=== PATIENT | male | born 1965 | race Caucasian/White ===

== ENCOUNTER 2019-06-01 18:50 | Observation (INO) | payer SELFPAY ==
[2019-06-01] MEDS ORDERED: Sodium Chloride 0.9% 2.5 ML Syringe FLUSH PRN (19:30)
[2019-06-01] MEDS ORDERED: Sodium Chloride 0.9% 10 ML Syringe FLUSH PRN (19:30)
--- NOTE | 2019-06-01 19:35 | EDM.PDOC ---
ED HPI GENERAL MEDICAL PROBLEM - General Chief Complaint: Lower Extremity Injury/Pain Stated Complaint: RT LEG/KNEE ISSUE Time Seen by Provider: 06/01/19 19:26 - History of Present Illness INITIAL COMMENTS - FREE TEXT/NARRATIVE: HISTORY AND PHYSICAL: History of present illness: Patient is 53-year-old white male with no significant past medical history presents with concern of cellulitis to his right leg. Patient states he was seen 5 days prior in clinic and put on Bactrim for cellulitis that started over the anterior aspect of his right proximal leg. He states this has felt warmer and redness has increased. He denies fever chills nausea vomiting or other concern he is extremely anxious regarding this episode Review of systems: As per history of present illness and below otherwise all systems reviewed and negative. Past medical history: As per history of present illness and as reviewed below otherwise noncontributory. Surgical history: As per history of present illness and as reviewed below otherwise noncontributory. Social history: No reported history of drug or alcohol abuse. Family history: As per history of present illness and as reviewed below otherwise noncontributory. Physical exam: HEENT: Atraumatic, normocephalic, pupils reactive, negative for conjunctival pallor or scleral icterus, mucous membranes moist, throat clear, neck supple, nontender, trachea midline. Lungs: Clear to auscultation, breath sounds equal bilaterally, chest nontender. Heart: S1S2, regular, negative for clicks, rubs, or JVD. Abdomen: Soft, nondistended, nontender. Negative for masses or hepatosplenomegaly. Negative for costovertebral tenderness. Pelvis: Stable nontender. Genitourinary: Deferred. Rectal: Deferred. Extremities: patient has erythema with some mild warmth over his right knee and proximal right leg there is no fluctuance induration patient has full range of motion and no evidence of septic arthritis Neuro: Awake, alert, oriented. Cranial nerves II through XII unremarkable. Cerebellum unremarkable. Motor and sensory unremarkable throughout. Exam nonfocal. Diagnostics: CBC CMP blood culture 2 x-ray right knee Therapeutics: Saline 1 L bolus vancomycin 1 g IV Impression: #1 cellulitis lower extremity Definitive disposition and diagnosis as appropriate pending reevaluation and review of above. right knee Pain Score (Numeric/FACES): 8 - Related Data Allergies Allergy/AdvReac Type Severity Reaction Status Date / Time No Known Allergies Allergy Verified 06/01/19 19:26 Home Meds: Home Meds . [No Known Home Meds] 06/01/19 [History] Past Medical History - Past Health History Medical/Surgical History: Denies Medical/Surgical History Gastrointestinal History: Reports: None Musculoskeletal History: Reports: None - Infectious Disease History Infectious Disease History: Reports: Chicken Pox - Past Surgical History GI Surgical History: Reports: Hernia, Inguinal, Other (See Below) Other GI Surgeries/Procedures: Spleenectomy Musculoskeletal Surgical History: Reports: Other (See Below) Other Musculoskeletal Surgeries/Procedures:: L hand Social & Family History - Family History Family Medical History: Noncontributory - Tobacco Use Smoking Status *Q: Never Smoker Second Hand Smoke Exposure: No - Caffeine Use Caffeine Use: Reports: Coffee - Recreational Drug Use Recreational Drug Use: No Review of Systems - Review of Systems Review Of Systems: ROS reveals no pertinent complaints other than HPI. ED EXAM, GENERAL - Physical Exam Exam: See Below (See dictation) Course - Vital Signs Last Recorded V/S: Last Vital Signs Temp 36.2 C 06/01/19 20:28 Pulse 67 06/01/19 20:28 Resp 16 06/01/19 20:28 BP 134/84 06/01/19 20:28 Pulse Ox 100 06/01/19 20:28 - Orders/Labs/Meds Orders: Active Orders 24 hr Category Date Time Status CULTURE BLOOD [BC] Stat Lab 06/01/19 19:40 Received CULTURE BLOOD [BC] Stat Lab 06/01/19 19:52 Received Sodium Chloride 0.9% [Saline Flush] Med 06/01/19 19:30 Active 10 ml FLUSH ASDIRECTED PRN Sodium Chloride 0.9% [Saline Flush] Med 06/01/19 19:30 Active 2.5 ml FLUSH ASDIRECTED PRN Vancomycin 1 gm Med 06/01/19 19:30 Active Sodium Chloride 0.9% [Normal Saline (AdvBag)] 250 ml IV ONETIME Blood Culture x2 Reflex Set [OM.PC] Stat Oth 06/01/19 19:30 Ordered Saline Lock Insert [OM.PC] Stat Oth 06/01/19 19:30 Ordered Medication Orders Vancomycin HCl 1 gm/ Sodium (Chloride) 250 mls @ 166 mls/hr IV ONETIME ONE Stop: 06/01/19 21:00 Last Admin: 06/01/19 20:23 Dose: 166 mls/hr Sodium Chloride (Saline Flush) 10 ml FLUSH ASDIRECTED PRN PRN Reason: Keep Vein Open Last Admin: 06/01/19 20:23 Dose: 10 ml Sodium Chloride (Saline Flush) 2.5 ml FLUSH ASDIRECTED PRN PRN Reason: Keep Vein Open Last Admin: 06/01/19 20:24 Dose: 2.5 ml Labs: Laboratory Tests 06/01/19 06/01/19 Range/Units 19:40 19:40 WBC 14.49 H (4.0-11.0) K/uL RBC 4.28 L (4.50-5.90) M/uL Hgb 13.7 (13.0-17.0) g/dL Hct 39.1 (38.0-50.0) % MCV 91.4 (80.0-98.0) fL MCH 32.0 (27.0-32.0) pg MCHC 35.0 (31.0-37.0) g/dL RDW Std Deviation 42.8 (28.0-62.0) fl RDW Coeff of Gali 13 (11.0-15.0) % Plt Count 307 (150-400) K/uL MPV 11.60 (7.40-12.00) fL Neut % (Auto) 69.8 (48.0-80.0) % Lymph % (Auto) 21.5 (16.0-40.0) % [place] % (Auto) 8.0 (0.0-15.0) % Eos % (Auto) 0.5 (0.0-7.0) % Baso % (Auto) 0.2 (0.0-1.5) % Neut # (Auto) 10.1 H (1.4-5.7) K/uL Lymph # (Auto) 3.1 H (0.6-2.4) K/uL [place] # (Auto) 1.2 H (0.0-0.8) K/uL Eos # (Auto) 0.1 (0.0-0.7) K/uL Baso # (Auto) 0.0 (0.0-0.1) K/uL Nucleated RBC % 0.0 /100WBC Nucleated RBCs # 0 K/uL Sodium 136 (136-148) mmol/L Potassium 3.7 (3.5-5.1) mmol/L Chloride 102 (98-107) mmol/L Carbon Dioxide 23.0 (21.0-32.0) mmol/L BUN 21 H (7.0-18.0) mg/dL Creatinine 1.3 (0.8-1.3) mg/dL Est Cr Clr Drug Dosing 69.41 mL/min Estimated GFR (MDRD) 58.2 ml/min Glucose 95 (74-106) mg/dL Calcium 9.5 (8.5-10.1) mg/dL Total Bilirubin 0.3 (0.2-1.0) mg/dL AST 20 (15-37) IU/L ALT 36 (14-63) IU/L Alkaline Phosphatase 80 (46-116) U/L Total Protein 7.6 (6.4-8.2) g/dL Albumin 3.8 (3.4-5.0) g/dL Globulin 3.8 (2.6-4.0) g/dL Albumin/Globulin Ratio 1.0 (0.9-1.6) Meds: Medications Generic Name Dose Route Start Last Admin Trade Name Freq PRN Reason Stop Dose Admin Vancomycin HCl 1 gm/ Sodium 250 mls @ 166 mls/hr 06/01/19 19:30 06/01/19 20: 23 Chloride IV 06/01/19 21:00 166 mls/hr ONETIME ONE Administration Sodium Chloride 10 ml 06/01/19 19:30 06/01/19 20:23 Saline Flush FLUSH 10 ml ASDIRECTED PRN Administration Keep Vein Open Sodium Chloride 2.5 ml 06/01/19 19:30 06/01/19 20:24 Saline Flush FLUSH 2.5 ml ASDIRECTED PRN Administration Keep Vein Open Discontinued Medications Generic Name Dose Route Start Last Admin Trade Name Freq PRN Reason Stop Dose Admin Sodium Chloride 1,000 mls @ 999 mls/hr 06/01/19 19:40 06/01/19 19:40 Normal Saline IV 06/01/19 20:40 999 mls/hr .Bolus ONE Administration Departure - Departure Time of Disposition: 21:00 Disposition: Refer to Observation Condition: Good Clinical Impression: Cellulitis - Discharge Information Referrals: PCP,None [Primary Care Provider] - Forms: ED Department Discharge - My Orders Last 24 Hours: My Active Orders 06/01/19 19:30 Sodium Chloride 0.9% [Saline Flush] 10 ml FLUSH ASDIRECTED PRN Sodium Chloride 0.9% [Saline Flush] 2.5 ml FLUSH ASDIRECTED PRN Vancomycin 1 gm Sodium Chloride 0.9% [Normal Saline (AdvBag)] 250 ml IV ONETIME Blood Culture x2 Reflex Set [OM.PC] Stat Saline Lock Insert [OM.PC] Stat 06/01/19 19:40 CULTURE BLOOD [BC] Stat 06/01/19 19:52 CULTURE BLOOD [BC] Stat - Assessment/Plan Last 24 Hours: My Active Orders 06/01/19 19:30 Sodium Chloride 0.9% [Saline Flush] 10 ml FLUSH ASDIRECTED PRN Sodium Chloride 0.9% [Saline Flush] 2.5 ml FLUSH ASDIRECTED PRN Vancomycin 1 gm Sodium Chloride 0.9% [Normal Saline (AdvBag)] 250 ml IV ONETIME Blood Culture x2 Reflex Set [OM.PC] Stat Saline Lock Insert [OM.PC] Stat 06/01/19 19:40 CULTURE BLOOD [BC] Stat 06/01/19 19:52 CULTURE BLOOD [BC] Stat
[2019-06-01] MEDS ORDERED: Sodium Chloride 0.9% 1,000 ML IV ONE (19:40)
[2019-06-01] MEDS ORDERED: Sodium Chloride 0.9% 500 ML IV SCH (19:45)
--- NOTE | 2019-06-01 20:11 | CR ---
INDICATION: Scratched theodora on Monday, is now having knee pain and swelling and thinks it is infected TECHNIQUE: Knee radiograph 3 views right COMPARISON: None FINDINGS: Bone: No acute fractures or aggressive bone lesions are identified. No evidence of osteomyelitis is seen. Joint: The joint spaces of the medial, lateral, and patellofemoral compartments are unremarkable. No significant knee effusion is seen. Soft tissue: Diffuse subcutaneous edema is present over the anterior knee. No radiopaque foreign bodies are seen. IMPRESSIONS: 1. No acute osseous injuries or abnormalities are noted. 2. No evidence of osteomyelitis is seen. If there is a high clinical index of suspicion, further evaluation with contrast-enhanced MRI or dual-isotope bone scan is recommended, given their higher sensitivities. Dictated by Cortez Sanford MD @ 06/01/2019 8:10:05 PM Dictated by: Cortez Sanford MD @ 06/01/2019 20:10:09 (Electronically Signed)
[2019-06-01] MEDS ORDERED: Acetaminophen 325 MG Tab PO PRN (23:29)
[2019-06-01] MEDS ORDERED: Sodium Chloride 0.9% 1,000 ML IV SCH (23:30)
[2019-06-02] MEDS: oxyCODONE 5 MG Tab PO PRN ×2 (00:02→07:00)
[2019-06-02] MEDS ORDERED: Vancomycin 1.25 GM SDV ONE (05:23)
[2019-06-02 06:49] LABS: CHLORIDE,CL 108 mmol/L (98-107); SODIUM,NA 139 mmol/L (136-148)
--- NOTE | 2019-06-02 07:32 | PCM.HP.2 ---
H&P History of Present Illness - General Date of Service: 06/02/19 Admit Problem/Dx: Admission Diagnosis/Problem Admission Diagnosis/Problem Cellulitis Source of Information: Patient History Limitations: Reports: No Limitations - History of Present Illness Initial Comments - Free Text/Narative: The patient is a 53-year-old gentleman who had presented to the emergency department with concern of cellulitis for his right lower extremity. Patient says that the cellulitis and started up 5 days ago after kneeling on concrete while working. The patient had gone to urgent care clinic and had been given Bactrim and this had failed to improve his area cellulitis. The patient has denied any fever or chills. He's had no nausea or vomiting. The patient has been in a good state of health up until the present time and had only been taken ibuprofen and the previously mentioned Bactrim. The patient also became concerned when the redness and swelling started to go down his leg and around to the back of his right knee. Onset of Symptoms: Reports: Gradual Duration of Symptoms: Reports: Day(s): Location: Reports: Lower Extremity, Right Quality: Reports: Ache, Stabbing Severity: Moderate Improves with: Reports: None Worsens with: Reports: None Associated Symptoms: Reports: No Other Symptoms right knee Pain Score (Numeric/FACES): 8 - Related Data Allergies/Adverse Reactions: Allergies Allergy/AdvReac Type Severity Reaction Status Date / Time No Known Allergies Allergy Verified 06/01/19 22:56 Home Medications: Home Meds Ibuprofen/Diphenhydramine Cit [Advil Pm Caplet] 1 each PO BEDTIME PRN 06/01/19 [ History] Clindamycin HCl 300 mg PO Q8H #12 capsule 06/02/19 [Rx] Past Medical History - Past Health History Medical/Surgical History: Denies Medical/Surgical History HEENT History: Reports: Impaired Vision Cardiovascular History: Reports: None Respiratory History: Reports: None Gastrointestinal History: Reports: None Genitourinary History: Reports: None Musculoskeletal History: Reports: None Neurological History: Reports: None Psychiatric History: Reports: None Endocrine/Metabolic History: Reports: None Hematologic History: Reports: None Immunologic History: Reports: None Oncologic (Cancer) History: Reports: None Dermatologic History: Reports: None - Infectious Disease History Infectious Disease History: Reports: Chicken Pox - Past Surgical History HEENT Surgical History: Reports: None GI Surgical History: Reports: Hernia, Inguinal, Other (See Below) Other GI Surgeries/Procedures: Spleenectomy Musculoskeletal Surgical History: Reports: ORIF, Other (See Below) Other Musculoskeletal Surgeries/Procedures:: L hand ORIF Social & Family History - Family History Family Medical History: Noncontributory - Tobacco Use Smoking Status *Q: Never Smoker Second Hand Smoke Exposure: No - Caffeine Use Caffeine Use: Reports: Coffee Caffeine Use Comment: 2 cups coffee per day - Recreational Drug Use Recreational Drug Use: No - Living Situation & Occupation Living situation: Reports: Single Occupation: Employed H&P Review of Systems - Review of Systems: Review Of Systems: See Below General: Reports: No Symptoms HEENT: Reports: No Symptoms Pulmonary: Reports: No Symptoms Cardiovascular: Reports: No Symptoms Gastrointestinal: Reports: No Symptoms Genitourinary: Reports: No Symptoms Musculoskeletal: Reports: No Symptoms Skin: Reports: Rash, Lesions Psychiatric: Reports: No Symptoms Neurological: Reports: No Symptoms Hematologic/Lymphatic: Reports: No Symptoms Immunologic: Reports: No Symptoms Exam - Exam Exam: See Below - Vital Signs Vital Signs: Last Vital Signs Temp 36.3 C 06/02/19 04:35 Pulse 60 06/02/19 04:35 Resp 14 06/02/19 04:35 BP 108/65 06/02/19 04:35 Pulse Ox 94 L 06/02/19 04:35 Weight: 91.308 kg - Exam Quality Assessment: No: Supplemental Oxygen General: Alert, Oriented, Cooperative HEENT: Conjunctiva Clear, EACs Clear, Mucosa Moist & Mack, Nares Patent, PERRLA Neck: Supple, Trachea Midline Lungs: Clear to Auscultation, Normal Respiratory Effort Cardiovascular: Regular Rate, Regular Rhythm GI/Abdominal Exam: Normal Bowel Sounds, Soft, No Distention Back Exam: Normal Inspection, Full Range of Motion Extremities: Normal Inspection, No Pedal Edema Skin: Warm, Dry, Intact, Other (Area of very minimal edema and erythema right lower extremity around graham with no open wound.) Neuro Extensive - Mental Status: Alert, Oriented x3 Psychiatric: Alert, Normal Affect, Normal Mood - Patient Data Lab Results Last 24 hrs: Laboratory Results - last 24 hr 06/01/19 06/01/19 06/02/19 Range/Units 19:40 19:40 06:11 WBC 14.49 H 9.88 (4.0-11.0) K/uL RBC 4.28 L 3.99 L (4.50-5.90) M/uL Hgb 13.7 12.6 L (13.0-17.0) g/dL Hct 39.1 36.8 L (38.0-50.0) % MCV 91.4 92.2 (80.0-98.0) fL MCH 32.0 31.6 (27.0-32.0) pg MCHC 35.0 34.2 (31.0-37.0) g/dL RDW Std Deviation 42.8 43.4 (28.0-62.0) fl RDW Coeff of Gali 13 13 (11.0-15.0) % Plt Count 307 271 (150-400) K/uL MPV 11.60 11.40 (7.40-12.00) fL Neut % (Auto) 69.8 59.7 (48.0-80.0) % Lymph % (Auto) 21.5 25.9 (16.0-40.0) % [place] % (Auto) 8.0 12.8 (0.0-15.0) % Eos % (Auto) 0.5 1.3 (0.0-7.0) % Baso % (Auto) 0.2 0.3 (0.0-1.5) % Neut # (Auto) 10.1 H 5.9 H (1.4-5.7) K/uL Lymph # (Auto) 3.1 H 2.6 H (0.6-2.4) K/uL [place] # (Auto) 1.2 H 1.3 H (0.0-0.8) K/uL Eos # (Auto) 0.1 0.1 (0.0-0.7) K/uL Baso # (Auto) 0.0 0.0 (0.0-0.1) K/uL Nucleated RBC % 0.0 0.0 /100WBC Nucleated RBCs # 0 0 K/uL Sodium 136 (136-148) mmol/L Potassium 3.7 (3.5-5.1) mmol/L Chloride 102 (98-107) mmol/L Carbon Dioxide 23.0 (21.0-32.0) mmol/L BUN 21 H (7.0-18.0) mg/dL Creatinine 1.3 (0.8-1.3) mg/dL Est Cr Clr Drug Dosing 69.41 mL/min Estimated GFR (MDRD) 58.2 ml/min Glucose 95 (74-106) mg/dL Calcium 9.5 (8.5-10.1) mg/dL Total Bilirubin 0.3 (0.2-1.0) mg/dL AST 20 (15-37) IU/L ALT 36 (14-63) IU/L Alkaline Phosphatase 80 (46-116) U/L Total Protein 7.6 (6.4-8.2) g/dL Albumin 3.8 (3.4-5.0) g/dL Globulin 3.8 (2.6-4.0) g/dL Albumin/Globulin Ratio 1.0 (0.9-1.6) 06/02/19 Range/Units 06:11 WBC (4.0-11.0) K/uL RBC (4.50-5.90) M/uL Hgb (13.0-17.0) g/dL Hct (38.0-50.0) % MCV (80.0-98.0) fL MCH (27.0-32.0) pg MCHC (31.0-37.0) g/dL RDW Std Deviation (28.0-62.0) fl RDW Coeff of Gali (11.0-15.0) % Plt Count (150-400) K/uL MPV (7.40-12.00) fL Neut % (Auto) (48.0-80.0) % Lymph % (Auto) (16.0-40.0) % [place] % (Auto) (0.0-15.0) % Eos % (Auto) (0.0-7.0) % Baso % (Auto) (0.0-1.5) % Neut # (Auto) (1.4-5.7) K/uL Lymph # (Auto) (0.6-2.4) K/uL [place] # (Auto) (0.0-0.8) K/uL Eos # (Auto) (0.0-0.7) K/uL Baso # (Auto) (0.0-0.1) K/uL Nucleated RBC % /100WBC Nucleated RBCs # K/uL Sodium 139 (136-148) mmol/L Potassium 3.6 (3.5-5.1) mmol/L Chloride 108 H (98-107) mmol/L Carbon Dioxide 21.8 (21.0-32.0) mmol/L BUN 18 (7.0-18.0) mg/dL Creatinine 1.1 (0.8-1.3) mg/dL Est Cr Clr Drug Dosing 82.03 mL/min Estimated GFR (MDRD) > 60.0 ml/min Glucose 99 (74-106) mg/dL Calcium 8.4 L (8.5-10.1) mg/dL Total Bilirubin 0.4 (0.2-1.0) mg/dL AST 16 (15-37) IU/L ALT 32 (14-63) IU/L Alkaline Phosphatase 65 (46-116) U/L Total Protein 6.1 L (6.4-8.2) g/dL Albumin 2.9 L (3.4-5.0) g/dL Globulin 3.2 (2.6-4.0) g/dL Albumin/Globulin Ratio 0.9 (0.9-1.6) Result Diagrams: 06/02/19 06:11 06/02/19 06:11 - Problem List (1) Cellulitis SNOMED Code(s): 434182661 ICD Code: L03.90 - CELLULITIS, UNSPECIFIED Status: Acute Qualifiers: Site of cellulitis: extremity Site of cellulitis of extremity: lower extremity Laterality: right Qualified Code(s): L03.115 - Cellulitis of right lower limb Problem List Initiated/Reviewed/Updated: Yes Orders Last 24hrs: Active Orders 24 hr Category Date Time Status Patient Status [ADT] Stat ADT 06/01/19 21:01 Active Regular Diet [DIET] Diet 06/02/19 Breakfast Active CULTURE BLOOD [BC] Stat Lab 06/01/19 19:40 Received CULTURE BLOOD [BC] Stat Lab 06/01/19 19:52 Received VANCOMYCIN TROUGH [CHEM] Timed Lab 06/03/19 18:30 Ordered Acetaminophen [Tylenol] Med 06/01/19 23:29 Active 650 mg PO Q6H PRN Pharmacy to Dose - Vancomycin Med 06/01/19 23:30 Pending 1 dose .XX ASDIRECTED Sodium Chloride 0.9% [Normal Saline] 1,000 ml Med 06/01/19 23:30 Active IV ASDIRECTED Sodium Chloride 0.9% [Saline Flush] Med 06/01/19 19:30 Active 10 ml FLUSH ASDIRECTED PRN Sodium Chloride 0.9% [Saline Flush] Med 06/01/19 19:30 Active 2.5 ml FLUSH ASDIRECTED PRN Vancomycin 1.25 gm Med 06/02/19 07:30 Active Sodium Chloride 0.9% [Normal Saline] 250 ml IV Q12H oxyCODONE Med 06/01/19 23:30 Active 5 mg PO Q4H PRN Blood Culture x2 Reflex Set [OM.PC] Stat Ot 06/01/19 19:30 Ordered Saline Lock Insert [OM.PC] Stat Ot 06/01/19 19:30 Ordered Medication Orders Acetaminophen (Tylenol) 650 mg PO Q6H PRN PRN Reason: Pain Sodium Chloride (Normal Saline) 1,000 mls @ 50 mls/hr IV ASDIRECTED [facility] Last Admin: 06/02/19 00:03 Dose: 50 mls/hr Vancomycin HCl 1.25 gm/ Sodium (Chloride) 250 mls @ 166.667 mls/hr IV Q12H [facility] Last Admin: 06/02/19 06:31 Dose: 166.667 mls/hr Oxycodone HCl (Oxycodone) 5 mg PO Q4H PRN PRN Reason: Pain Last Admin: 06/02/19 07:00 Dose: 5 mg Admin: 06/02/19 00:02 Dose: 5 mg Sodium Chloride (Saline Flush) 10 ml FLUSH ASDIRECTED PRN PRN Reason: Keep Vein Open Last Admin: 06/01/19 20:23 Dose: 10 ml Sodium Chloride (Saline Flush) 2.5 ml FLUSH ASDIRECTED PRN PRN Reason: Keep Vein Open Last Admin: 06/01/19 20:24 Dose: 2.5 ml Vancomycin HCl (Pharmacy To Dose - Vancomycin) 1 dose .XX ASDIRECTED [facility] Assessment/Plan Comment:: The patient is an otherwise healthy 53-year-old gentleman who had been admitted due to cellulitis of his right lower extremity. This was secondary to failure as an outpatient. The patient had received IV antibiotics, vancomycin, and had tolerated this well. The patient says that he has improved significantly. The patient says that he feels like he can go home. The patient will be discharged on by mouth clindamycin 300 mg every 8 hours. He also has been recommended to follow-up with his primary care physician. The patient has been recommended to continue with his diet as tolerated. He is also to have activity as tolerated. The patient has been hemodynamically stable and he is discharged from acute hospitalization with recommendations listed above. This history and physical will also count is a discharge summary. - Mortality Measure Prognosis:: Good
[2019-06-02] MEDS ORDERED: Heparin Sodium 5,000 Units/ML Vial SUBCUT SCH (08:00)
[2019-06-02] MEDS ORDERED: VANCOMYCIN/WATER FOR INJ (PEG) 1.5 GM in Premix Bag 1 BAG IV SCH ×2 (08:21→19:00)
== END 2019-06-02 11:05 | disposition home or self-care (01) ==
LOC: MW.ED 18:50 → MW.MS 21:01
PROVIDERS: ADMIT Internal Medicine; ATTEND Internal Medicine
DX: L03.115 Cellulitis of right lower limb (principal); Z98.890 Other specified postprocedural states
CPT/HCPCS: 36415; 73562; 80053; 85025; 87040; 96361; 96365; 96366; 96372; 99284; A9270; G0378; J1644; J3370; J7040; J7050